=== PATIENT | female | born 1960 | race Caucasian/White ===

== ENCOUNTER 2016-12-22 14:34 | Emergency (ER) | payer OTHER ==
[2016-12-22] MEDS ORDERED: IBUPROFEN 600 MG TABLET PO STA (15:58)
[2016-12-22] MEDS ORDERED: LIDOCAINE OINTMENT 5% 35.44 GM TUBE TOP STA (15:58)
[2016-12-22] MEDS ORDERED: BACITRACIN OINT TOP STA (15:58)
[2016-12-22] MEDS ORDERED: HYDROcod/ACETAM 5/325 MG TABLET PO STA (15:59)
[2016-12-22] MEDS ORDERED: BACITRACIN OINT TOP ONE (16:09)
[2016-12-22] MEDS ORDERED: IBUPROFEN 600 MG TABLET PO ONE (16:10)
[2016-12-22] MEDS ORDERED: HYDROcod/ACETAM 5/325 MG TABLET ONE (16:10)
[2016-12-22] MEDS ORDERED: LIDOCAINE JELLY 2% 5 ML TUBE TOP ONE (16:11)
[2016-12-22] MEDS ORDERED: LIDOCAINE OINTMENT 5% 35.44 GM TUBE ONE (16:26)
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
[2016-12-22 16:49] VITALS: BP 120/81
== END 2016-12-22 16:48 | disposition home or self-care (01) ==
LOC: ED 14:34
DX: T23.251A Burn of second degree of right palm, initial encounter (principal); T23.231A Burn of second degree of multiple right fingers (nail), not including thumb, initial encounter; X15.3XXA Contact with hot saucepan or skillet, initial encounter; Y93.G3 Activity, cooking and baking; Y92.010 Kitchen of single-family (private) house as the place of occurrence of the external cause
CPT/HCPCS: 99282; 99283; A9270

== ENCOUNTER 2017-03-07 14:31 | Outpatient (CLI) | payer OTHER ==
--- NOTE | 2017-03-20 18:00 | Mammography Report ---
DATE OF SERVICE: 03/07/2017 DIGITAL SCREENING MAMMOGRAM: 03/07/2017 CLINICAL INDICATION: A 57-year-old nulliparous patient, for screening. COMPARISON: The patient reports having had previous mammograms in [place], but films are not yet available for direct comparison. If they become available, an addendum will be issued. Otherwise, this will serve as a new baseline. TECHNIQUE: Routine CC and MLO projections were obtained of the breasts. Bilateral laterally exaggerated craniocaudal views. FINDINGS: The breasts demonstrate heterogeneously dense fibroglandular parenchyma bilaterally. A few punctate, typically benign calcifications are present. No suspicious masses, clustered microcalcifications, or regions of architectural distortion are identified. IMPRESSION: BENIGN FINDINGS. RECOMMENDATION: ROUTINE ANNUAL SCREENING UNLESS OTHERWISE CLINICALLY INDICATED. BIRADS CATEGORY 2-BENIGN FINDINGS. STANDARD QUALIFYING STATEMENTS: 1. This examination was reviewed with the aid of Computer-Aided Detection (CAD). 2. A negative or benign imaging report should not delay biopsy if clinically suspicious findings are present. Consider surgical consultation if warranted. More than 5% of cancers are not identified by imaging. 3. Dense breasts may obscure an underlying neoplasm. TD: 03/20/2017 18:59
== END 2017-03-07 14:32 | disposition home or self-care (01) ==
LOC: DI.S 14:31
PROVIDERS: ATTEND Registered Nurse
DX: Z12.31 Encounter for screening mammogram for malignant neoplasm of breast (principal)
CPT/HCPCS: 77067

== ENCOUNTER 2017-08-22 08:42 | Day surgery (SDC) | payer OTHER ==
[2017-08-22] MEDS ORDERED: LACTATED RINGERS 1,000 ML IV ONE (09:15)
[2017-08-22 11:24] VITALS: BP 102/74
[2017-08-22] MEDS ORDERED: LIDOCAINE-MPF 2% 5 ML VIAL IM ONE (11:40)
[2017-08-22] MEDS ORDERED: PROPOFOL 200 MG/20 ML VIAL IVP ONE (11:40)
== END 2017-08-22 08:43 | disposition home or self-care (01) ==
LOC: SDS 08:42
PROVIDERS: ATTEND Internal Medicine Gastroenterology
PROC: 0DJD8ZZ Inspection of Lower Intestinal Tract, Via Natural or Artificial Opening Endoscopic (ICD-10-PCS; principal; 2017-08-22 10:00)
DX: Z12.11 Encounter for screening for malignant neoplasm of colon (principal)
CPT/HCPCS: 45378; J7120

== ENCOUNTER 2018-07-15 09:29 | Outpatient (CLI) | payer OTHER ==
--- NOTE | 2018-07-15 10:57 | XRAY Report ---
Reason: RIGHT FOOT PAIN Procedure Date: 07/15/2018 Accession Number: [id number] / [id number] Procedure: XR - Foot 2 View RT CPT Code: FULL RESULT: EXAM: RIGHT FOOT RADIOGRAPHY EXAM DATE: 07/15/2018 09:55 AM. CLINICAL HISTORY: Right foot pain. COMPARISON: None. TECHNIQUE: 2 views. FINDINGS: Bones: Normal. No fractures or bone lesions. Joints: Normal. No subluxations. Soft Tissues: Very mild soft tissue swelling at the attachment of the Achilles tendon on the posterior calcaneus. IMPRESSION: 1. No fracture. 2. Mild soft tissue swelling at the attachment of the Achilles tendon on the calcaneus, could be sequela of acute or chronic injury. Clinical correlation suggested. RADIA
== END 2018-07-15 09:30 | disposition home or self-care (01) ==
LOC: DI 09:29
PROVIDERS: ATTEND Nurse Practitioner Family
DX: M79.671 Pain in right foot (principal); R22.41 Localized swelling, mass and lump, right lower limb

== ENCOUNTER 2020-03-29 15:02 | Outpatient (CLI) | payer OTHER ==
--- NOTE | 2020-03-31 12:01 | Mammography Report ---
BILATERAL DIGITAL SCREENING MAMMOGRAM 3D/2D WITH EXAGGERATED CC: 03/29/2020 CLINICAL: Routine screening. Comparison is made to exams dated: 03/07/2017 mammogram - [facility] and 06/03/2013 ma mmogram - [place]. The tissue of both breasts is predominantly fatty. No significant masses, calcifications, or other findings are seen in either breast. There has been no significant interval change. IMPRESSION: NEGATIVE There is no mammographic evidence of malignancy. A 1 year screening mammogram is recommended. This exam was interpreted at Station ID: [id number]. NOTE: For mammograms, a report in lay terms will be sent to the patient. Approximately 15% of breast malignancies will not be visualized mammographically. In the management of a palpable breast mass, a negative mammogram must not discourage biopsy of a clinically suspicious lesion. Electronically Signed By: Thang Cedillo acr/:03/31/2020 11:36:38 ACR BI-RADS Category 1: Negative 3341F PARENCHYMAL PATTERN: (F) - The breast(s) demonstrate(s) diffuse fatty replacement. BI-RADS CATEGORY: (1) - 1 RECOMMENDATION: (ANNUAL) - Recommend routine annual screening mammography. [id number] 1 year screening LATERALITY: (B)
== END 2020-03-29 15:03 | disposition home or self-care (01) ==
LOC: DI.S 15:02
PROVIDERS: ATTEND Registered Nurse
DX: Z12.31 Encounter for screening mammogram for malignant neoplasm of breast (principal)

== ENCOUNTER 2022-03-21 09:00 | Outpatient (CLI) | payer OTHER ==
--- NOTE | 2022-03-22 12:17 | Mammography Report ---
BILATERAL DIGITAL SCREENING MAMMOGRAM 3D/2D WITH EXAGGERATED CC: 03/21/2022 CLINICAL: Routine screening. Comparison is made to exams dated: 03/29/2020 mammogram and 03/07/2017 mammogram - [facility]. Both breasts are heterogeneously dense, which may obscure small masses (category c / 51-75% glandular tissue). No significant masses, calcifications, or other findings are seen in either breast. There has been no significant interval change. IMPRESSION: NEGATIVE There is no mammographic evidence of malignancy. A 1 year screening mammogram is recommended. Based on the Tyrer Cuzick model (a risk assessment model) the patients lifetime risk is 11.2% and he r 10 year risk is 5.2%. According to the ACR, ACS, and NCCN guidelines, an annual breast MRI exam charles ng with mammogram is recommended if the patients lifetime risk is 20% or greater. This exam was interpreted at Station ID: [id number]. NOTE: For mammograms, a report in lay terms will be sent to the patient. Approximately 15% of breast malignancies will not be visualized mammographically. In the management of a palpable breast mass, a negative mammogram must not discourage biopsy of a clinically suspicious lesion. Electronically Signed By: Vick Khan M.D. atcrys/massimo:03/21/2022 17:21:11 ACR BI-RADS Category 1: Negative 3341F PARENCHYMAL PATTERN: (D) - The breast(s) demonstrate(s) heterogeneously dense fibroglandular laura rich. BI-RADS CATEGORY: (1) - 1 RECOMMENDATION: (ANNUAL) - Recommend routine annual screening mammography. [id number] 1 year screening LATERALITY: (B)
== END 2022-03-21 09:01 | disposition home or self-care (01) ==
LOC: DI.S 09:00
PROVIDERS: ATTEND Registered Nurse
DX: Z12.31 Encounter for screening mammogram for malignant neoplasm of breast (principal)

== ENCOUNTER 2023-01-13 13:28 | Outpatient (CLI) | payer OTHER ==
--- NOTE | 2023-01-13 19:47 | Ultrasound Report ---
PROCEDURE: Retroperitoneal INDICATIONS: ELEVATED CR TECHNIQUE: Real-time scanning was performed of the retroperitoneal organs, with image documentation. COMPARISON: None. FINDINGS: Kidneys: Kidneys are within normal limits for size. Right kidney measures 3.7 cm long; left kidney measures 9.5 cm long. Right renal cortical thickness is 0.6 cm; left renal cortical thickness is 0.7 cm. No definite kidney stones or hydronephrosis can be seen. Along the lateral aspect of the left kidney, there is mild contour irregularity seen, with an apparen t hypoechoic mass with internal vascularity measuring 2.5 x 1.4 x 2.1 cm, as on images 56 and 59. Bladder: Pre-void bladder volume is 205 mL. Post-void residual is 80 mL. Pre-void images demonstra te no intraluminal masses or stones. On pre-void images, both ureteral jets are noted with color Dop pler interrogation. (Of note, ureteral jets may not be detectable in up to 25% of cases due to insuf ficient differences in specific gravity between ureteral and bladder urine). Miscellaneous: No free abdominal fluid. IMPRESSION: 2.5 cm focus seen involving the mid left kidney, which is moderately suspicious for a primary mass. D ifferential diagnosis includes a dromedary comp, yet this is is considered to be less likely based up on these images. - A dedicated renal mass protocol CT (without and with contrast) is now recommended. If this patient has significant renal insufficiency, then a renal mass protocol MRI (without and with contrast) coul d be considered instead (assuming that there is no contraindication). Negative for hydronephrosis or stones. Moderate post residual, 80 cc. Reviewed by: Christos Wyatt MD on 01/13/2023 6:46 PM [facility] Approved by: Christos Wyatt MD on 01/13/2023 6:46 PM [facility] Station ID: [id number]
== END 2023-01-13 13:29 | disposition home or self-care (01) ==
LOC: DI 13:28
PROVIDERS: ATTEND Registered Nurse
DX: R93.5 Abnormal findings on diagnostic imaging of other abdominal regions, including retroperitoneum (principal)

== ENCOUNTER 2023-01-31 10:45 | Outpatient (CLI) | payer OTHER ==
[2023-01-31] MEDS ORDERED: iohexoL-300 100 ML VIAL IVP ONE (11:52)
--- NOTE | 2023-01-31 16:40 | CT Report ---
PROCEDURE: ABDOMEN W/WO INDICATIONS: RENAL MASS CONTRAST: 140ml omni 300 TECHNIQUE: After the administration of intravenous contrast, 5 mm thick sections acquired from the diaphragm to the symphysis. 5 mm coronal and sagittal reformats were acquired. For radiation dose reduction, the following was used: automated exposure control, adjustment of mA and/or kV according to patient siz e. COMPARISON: Ultrasound 01/13/2023 FINDINGS: Image quality: Excellent. Genitourinary: No renal mass identified. Dromedary hump present on the left. No complex cystic mass. Possible filling defect within the proximal left ureter measuring less than 3 mm (series 11, image 6 3). OTHER: Lung bases and heart: Small hiatal hernia. Liver: No solid mass. Gallbladder and biliary tree: No radiopaque stones or wall thickening. No biliary dilation. Spleen: No splenomegaly. Pancreas: No pancreatic ductal dilation. Adrenals: No adrenal nodule. Bowel and peritoneum: No bowel distension. No pathologic free fluid. Lymph nodes: No central or retroperitoneal adenopathy. Vessels: No infrarenal aortic aneurysm. Bones: No aggressive osseous abnormality. Other: No significant ventral hernia. IMPRESSION: No solid renal mass identified. The previously described mass corresponds to a dromedary hump. Possible filling defect within the proximal left ureter. Alternatively, this could be due to external compression of an adjacent vessel. Correlate with hematuria. If positive, ureteroscopy would be alesia mmended. Reviewed by: Ildefonso Herman on 01/31/2023 4:39 PM [facility] Approved by: Ildefonso Herman on 01/31/2023 4:39 PM PST Station ID: [id number]
== END 2023-01-31 10:46 | disposition home or self-care (01) ==
LOC: DI 10:45
PROVIDERS: ATTEND Registered Nurse
DX: N28.89 Other specified disorders of kidney and ureter (principal)
CPT/HCPCS: 74170; Q9967